=== PATIENT | male | born 1995 | race Caucasian/White ===

== ENCOUNTER 2019-10-30 08:23 | Emergency (ER) | payer MEDICAID ==
[~2019-10-30] VITALS: Ht 188 cm; Wt 72.6 kg
[2019-10-30 08:30] VITALS: Ht 188 cm; Wt 72.6 kg
[2019-10-30 09:16] LABS: CALCIUM 9.1 mg/dL (8.5-10.1); CHLORIDE SERUM 106 mmol/L (98-107); GFR1 > 60 mL/min; GLUCOSE SERUM 60 mg/dL (74-106); SODIUM SERUM 141 mmol/L (136-145)
[2019-10-30 09:19] LABS: BASOPHIL % 1.7 % (0-2); PLATELET COUNT 218 x10^3mcL (130-400); RED CELL DISTRIBUTION WIDTH 12.4 % (11.5-14.5)
[2019-10-30 11:11] VITALS: BP 117/60
== END 2019-10-30 11:11 | disposition home or self-care (01) ==
LOC: ED 08:23
PROVIDERS: Student in an Organized Health Care Education/Training Program
DX: R07.89 Other chest pain (principal); Z20.828 Contact with and (suspected) exposure to other viral communicable diseases; Z90.89 Acquired absence of other organs
CPT/HCPCS: Q0092; U0003-CS